=== PATIENT | female | born 1980 | race American Indian/Alaskan Native ===

== ENCOUNTER 2017-01-18 15:30 | Emergency (ER) | payer OTHER ==
[2017-01-18 16:35] LABS: Basophils % (Auto) 0.8 % (0.0-1.8); Eosinophils % (Auto) 3.1 % (0.0-4.3); Hematocrit 42.6 % (30.3-42.9); Hemoglobin 13.8 gm/dl (10.1-14.3); Mean Corpuscular HGB Conc 32 % (30-34); Mean Corpuscular Hemoglobin 32 pg (28-32); Mean Corpuscular Volume 98 fl (79-97); Platelet Count 201 K/mm3 (140-440); Red Blood Count 4.34 M/mm3 (3.65-5.03); Red Cell Distribution Width 14.3 % (13.2-15.2); White Blood Count 4.7 K/mm3 (4.5-11.0)
[2017-01-18 16:50] LABS: Anion Gap 15 mmol/L; BUN/Creatinine Ratio 9; Blood Urea Nitrogen 6 mg/dL (7-17); Calcium 8.3 mg/dL (8.4-10.2); Carbon Dioxide 26 mmol/L (22-30); Chloride 107.4 mmol/L (98-107); Glucose 112 mg/dL (65-100); Potassium 4.2 mmol/L (3.6-5.0); Sodium 144 mmol/L (137-145)
[2017-01-18 17:35] LABS: Bilirubin,Urine NEG (Negative); Blood,Urine NEG (Negative); Ketones,Urine NEG (Negative); Leukocyte Esterase,Urine NEG (Negative); Mucus,Urine FEW /HPF; Nitrite,Urine NEG (Negative); Protein,Urine <15 mg/dL mg/dL (Negative); Urobilinogen,Urine < 2.0 mg/dL (<2.0)
[2017-01-19] MEDS ORDERED: MORPHINE IM ONE (04:59)
[2017-01-19] MEDS ORDERED: ZOFRAN ODT PO ONE (04:59)
--- NOTE | 2017-01-19 05:03 | Emergency Department Report ---
Chief Complaint: Dyspnea/Respdistress Stated Complaint: SWOLLEN LEG,SOB - HPI History of Present Illness: 36-year-old female past medical history none presents with complaint of bilateral lower extremity swelling which is painful and concerning to the patient. Patient denies being on control denies any history of DVT or PE. Denies any recent surgery and/or prolonged travel. Patient states that pain is intensifying and bilateral lower extremities. Denies any trauma. Denies shortness of breath or chest pain at this time. - ROS Review of Systems: 2 days of lower extremity swelling bilaterally - Exam Vital Signs: Vital Signs 01/18/17 01/19/17 01/19/17 15:52 01:50 01:55 Temperature 98.8 F Pulse Rate 79 71 77 Respiratory 20 14 17 Rate Blood Pressure 115/73 112/76 Blood Pressure [Right] O2 Sat by Pulse 100 100 100 Oximetry 01/19/17 01/19/17 01:59 02:00 Temperature 98 F Pulse Rate 67 68 Respiratory 14 13 Rate Blood Pressure 114/78 Blood Pressure 112/76 [Right] O2 Sat by Pulse 100 100 Oximetry Physical Exam: Heart S1-S2, lungs clear to auscultation. +1/+2 pitting edema to the mid [place] region bilaterally MSE screening note: Focused history and physical exam performed. Due to findings the following was ordered: Screening Assessment/Plan/Differential Dx: Lower extremity swelling and pain 1- This initial assessment/diagnostic orders/clinical plan/ treatment(s) is/are subject to change based on pt's health status, clinical progression and re- assessment by fellow clinical providers in the ED. Further treatment and workup at subsequent clinical provers discretion. Patient/guardians urged not to elope from ED as their condition may be serious if not clinically assessed and managed. 2-troponin negative 3, EKG sinus rhythm, chest x-ray unremarkable, renal function normal on BNP 3-will add d-dimer as patient has bilateral lower extremity edema, +/- LE doppler pending d-dimer ED Medical Decision Making - Lab Data Result diagrams: 01/18/17 16:09 01/18/17 16:09 ED Disposition for MSE Condition: Stable Referrals: PRIMARY CARE, [Primary Care Provider] - 3-5 Days
[2017-01-19] MEDS ORDERED: LASIX IV ONE (07:11)
[2017-01-19] MEDS ORDERED: FLEXERIL PO ONE (07:13)
--- NOTE | 2017-01-19 07:20 | XRay Report ---
ROUTINE CHEST, TWO VIEWS: HISTORY: Short of breath. The trachea, heart, mediastinal contour, lung harp and bony thorax are unremarkable. IMPRESSION: Unremarkable chest x-ray.
--- NOTE | 2017-01-19 08:25 | Emergency Department Report ---
HPI - General Chief Complaint: Dyspnea/Respdistress Time Seen by Provider: 01/19/17 06:15 - HPI HPI: The patient is a 36-year-old female who presents for evaluation of leg swelling and pain. The patient reports 3 days of bilateral lower leg swelling and pain, 5/10 in severity, crampy in quality, exacerbated with ambulation and weightbearing. The patient denies fever, cough, chest pain, dyspnea, syncope, hemoptysis, unilateral leg swelling, oral contraceptive use, recent immobilization, history of DVT or PE. ED Past Medical Hx - Past Medical History Previous Medical History?: No - Surgical History Past Surgical History?: Yes Additional Surgical History: L hand - Social History Smoking Status: Current Every Day Smoker Substance Use Type: Alcohol - Medications Home Medications: Home Medications Medication Instructions Recorded Confirmed Last Taken Type Naproxen Sodium [Aleve] 220 mg PO Q8H PRN 12/16/13 12/16/13 12/16/13 History methOCARBAMOL [Robaxin] 500 mg PO BID #10 tab 12/17/13 Unknown Rx Ibuprofen [Motrin 600 MG tab] 600 mg PO Q8H PRN #40 tablet 04/21/14 Unknown Rx Sulfamethoxazole/Trimethoprim 1 each PO BID #20 tablet 04/21/14 Unknown Rx [Bactrim Ds] traMADol [Ultram 50 MG tab] 50 mg PO Q6HR PRN #20 tablet 04/21/14 Unknown Rx Acetaminophen/Codeine 1 tab PO Q4-6H PRN #16 tab 04/25/14 Unknown Rx [Acetaminophen-Codeine #3 TAB] metroNIDAZOLE [Flagyl] 500 mg PO Q8HR #21 tablet 11/12/14 Unknown Rx oxyCODONE /ACETAMINOPHEN [Percocet 1 tab PO Q6HR PRN #12 tablet 11/12/14 Unknown Rx 5/325] Cyclobenzaprine HCl [Flexeril 5 MG 5 mg PO Q8HR PRN #15 tab 01/19/17 Unknown Rx TAB] Furosemide [Lasix] 20 mg PO QDAY #20 tablet 01/19/17 Unknown Rx ED Review of Systems ROS: Stated complaint: SWOLLEN LEG,SOB Other details as noted in HPI Constitutional: denies: fever ENT: denies: throat or neck pain Respiratory: denies: cough, shortness of breath Cardiovascular: denies: chest pain Endocrine: denies unexplained weight loss or gain Gastrointestinal: denies: abdominal pain, nausea Genitourinary: denies: dysuria Musculoskeletal: reports leg swelling Skin: denies: rash Neurological: denies: headache Hematological/Lymphatic: denies: easy bleeding or easy bruising Psych: denies sadness or hopelessness Physical Exam - Physical Exam Vital Signs: Vital Signs 01/18/17 01/19/17 01/19/17 15:52 01:50 01:55 Temperature 98.8 F Pulse Rate 79 71 77 Respiratory 20 14 17 Rate Blood Pressure 115/73 112/76 Blood Pressure [Right] O2 Sat by Pulse 100 100 100 Oximetry 01/19/17 01/19/17 01:59 02:00 Temperature 98 F Pulse Rate 67 68 Respiratory 14 13 Rate Blood Pressure 114/78 Blood Pressure 112/76 [Right] O2 Sat by Pulse 100 100 Oximetry Physical Exam: General: well-nourished, well-developed, no acute distress Head: Normocephalic, atraumatic Eyes: normal sclera ENT: Mucous membranes are pink and moist Neck: trachea midline, neck supple, No neck stiffness, no cervical adenopathy Respiratory: Breath sounds equal bilaterally, no wheezing, rales, or rhonchi Cardio: S1 and S2 present, no murmurs, rubs, gallops, capillary refill is brisk Abdomen: Normoactive bowel sounds, soft abdomen, no rigidity, no guarding or rebound tenderness Musc: 1+ pitting edema of bilateral distal lower legs, mild tenderness to palpation present, leg compartments are soft and pliable, no redness, ecchymosis or purpura, warmth, fluctuance, or deformity Skin: No rash Neuro: no facial drooping, normal speech Psych: Normal affect ED Course Vital Signs 01/18/17 01/19/17 01/19/17 15:52 01:50 01:55 Temperature 98.8 F Pulse Rate 79 71 77 Respiratory 20 14 17 Rate Blood Pressure 115/73 112/76 Blood Pressure [Right] O2 Sat by Pulse 100 100 100 Oximetry 01/19/17 01/19/17 01:59 02:00 Temperature 98 F Pulse Rate 67 68 Respiratory 14 13 Rate Blood Pressure 114/78 Blood Pressure 112/76 [Right] O2 Sat by Pulse 100 100 Oximetry ED Medical Decision Making - Lab Data Result diagrams: 01/18/17 16:09 01/18/17 16:09 - Medical Decision Making The patient was seen and examined by myself. The patient is placed on a manager cardiac and continuous pulse ox. On initial evaluation, the patient was found to be in no distress. EKG was negative for findings suggestive of acute cardiac infarct. Labs and imaging are obtained. The patient is given Lasix for her Swelling and mild pain medicine. Chest x-ray is negative for pneumothorax, focal consolidation, pulmonary vascular congestion, pleural effusion, or other obvious acute cardiopulmonary disease process. Lab results exhibit elevated BNP 126, and otherwise labs were non-concerning including levels of troponin, WBC, hemoglobin, hematocrit, renal function. The patient was reevaluated and reported that their symptoms were markedly improved. The patient is stable for discharge with outpatient follow-up. The patient is given follow-up and return instructions. The patient expressed understanding and agreed with the plan. The patient is discharged in stable condition. Critical care attestation.: If time is entered above; I have spent that time in minutes in the direct care of this critically ill patient, excluding procedure time. ED Disposition Clinical Impression: Localized swelling of lower leg, Shortness of breath Disposition: DC-01 TO HOME OR SELFCARE Is pt being admited?: No Does the pt Need Aspirin: No Condition: Stable Instructions: Leg Edema (ED), Heart Failure (ED) Referrals: ILYA MAK MD [Staff Physician] - 3-[address] [facility] [Outside] - 3-5 Days Time of Disposition: 08:22
[2017-01-19 09:09] VITALS: BP 108/71
== END 2017-01-19 09:09 | disposition home or self-care (01) ==
LOC: ED 15:30
DX: R22.43 Localized swelling, mass and lump, lower limb, bilateral (principal); R06.02 Shortness of breath; F17.200 Nicotine dependence, unspecified, uncomplicated; F10.10 Alcohol abuse, uncomplicated
CPT/HCPCS: 36415; 71020; 80048; 81001; 83880; 84484; 84703; 85025; 85379; 93005; 93010; 96372; 96374; 99284; J1940; J2270; Q0162